=== PATIENT | female | born 1980 | race Caucasian/White ===

== ENCOUNTER → 2020-03-09 10:18 | Outpatient (BNVA) | payer OTHER, SELFPAY | PROVIDERS: PCP Internal Medicine; Referring Provider Internal Medicine; Visit Provider Physician Assistant | DX: K59.09 Other constipation (principal); Z79.899 Other long term (current) drug therapy | CPT/HCPCS: 99212 ==

== ENCOUNTER → 2020-07-06 11:21 | Outpatient (BNVA) | payer OTHER, SELFPAY | PROVIDERS: PCP Internal Medicine; Visit Provider Anesthesiology | DX: M51.36 Other intervertebral disc degeneration, lumbar region (principal); M47.816 Spondylosis without myelopathy or radiculopathy, lumbar region; M48.061 Spinal stenosis, lumbar region without neurogenic claudication; G89.4 Chronic pain syndrome | CPT/HCPCS: 99212 ==

== ENCOUNTER 2020-07-19 08:55 | Outpatient (REF) | payer OTHER, SELFPAY ==
--- NOTE | ~2020-07-19 | MR_ITS ---
MR LUMBAR SPINE WITHOUT CONTRAST CLINICAL INFORMATION: Spinal stenosis, lumbar region without neurogenic claudication. COMPARISON: Lumbar spine MRI 07/14/2019. TECHNIQUE: MRI of the lumbar spine was obtained using routine sequences without contrast. FINDINGS: There are 5 nonrib-bearing lumbar-type vertebral bodies. There is slight grade 1 anterolisthesis of L5 on S1 that is unchanged. Lumbar alignment is otherwise maintained. Modic type I endplate signal changes at L3-L4 and L5-S1. There are also Modic type II endplate signal changes at L5-S1. No additional bone marrow edema. No acute fractures. Conus terminates at the L1 level. There are no significant soft tissue findings. L1-L2: Disc contour is normal. No central canal stenosis and no foraminal stenosis. L2-L3: Small annular disc bulge and bilateral facet arthropathy. No central canal stenosis and no foraminal stenosis. L3-L4: Diffuse annular disc bulge exhibiting a dorsal annular fissure and bilateral facet arthropathy. No central canal stenosis. Mild foraminal encroachment bilaterally. L4-L5: Diffuse annular disc bulge and moderate bilateral facet arthropathy and ligamentum flavum thickening. No central canal stenosis. No foraminal stenosis. L5-S1: There is a diffuse annular disc bulge with superimposed left greater than right lateral disc osteophyte protrusions, on the left side contacting the extraforaminal left L5 nerve root. There is mild right-sided foraminal encroachment. MR/MR lumbar spine wo con IMPRESSION: - At L5-S1, a left lateral disc osteophyte protrusion similarly contacts the extraforaminal left L5 nerve root. - At L3-L4, and annular disc bulge exhibiting a dorsal annular fissure is stable. - No severe central canal stenosis and no severe foraminal stenosis within the lumbar spine.
== END 2020-07-19 08:56 | disposition home or self-care (01) ==
LOC: HO.MRI 08:55
PROVIDERS: PCP Internal Medicine; Visit Provider Anesthesiology
DX: M47.816 Spondylosis without myelopathy or radiculopathy, lumbar region (principal); M51.36 Other intervertebral disc degeneration, lumbar region; M48.061 Spinal stenosis, lumbar region without neurogenic claudication
CPT/HCPCS: 72148

== ENCOUNTER → 2020-08-03 13:07 | Outpatient (BNVA) | payer OTHER, SELFPAY | PROVIDERS: PCP Internal Medicine; Visit Provider Anesthesiology ==

== ENCOUNTER → 2020-08-10 16:28 | Outpatient (BNVA) | payer OTHER, SELFPAY | PROVIDERS: PCP Internal Medicine; Visit Provider Anesthesiology | DX: M51.36 Other intervertebral disc degeneration, lumbar region (principal); M47.816 Spondylosis without myelopathy or radiculopathy, lumbar region; M48.061 Spinal stenosis, lumbar region without neurogenic claudication; G89.4 Chronic pain syndrome; Z79.899 Other long term (current) drug therapy | CPT/HCPCS: 99212 ==

== ENCOUNTER 2020-08-11 15:22 | Outpatient (REF) | payer OTHER, SELFPAY ==
--- NOTE | ~2020-08-11 | XR_ITS ---
EXAMINATION: XR KNEE, LEFT CLINICAL INFORMATION: Left knee x-ray COMPARISON: None TECHNIQUE: Four views of the left knee. FINDINGS: Bones and soft tissues are normal. No fracture or joint effusion. Alignment is anatomic. Joint spaces are well maintained. No abnormal soft tissue calcification. XR/XR knee LT 2V IMPRESSION: Normal left knee.
== END 2020-08-11 15:23 | disposition home or self-care (01) ==
LOC: HO.XRAY 15:22
PROVIDERS: PCP Internal Medicine; Visit Provider Nurse Practitioner Family
DX: M25.562 Pain in left knee (principal)
CPT/HCPCS: 73560

== ENCOUNTER 2020-08-14 12:35 | Outpatient (REF) | payer OTHER, SELFPAY ==
[2020-08-14 13:47] LABS: MANUAL DIFF FLAG NO
[2020-08-14 14:07] LABS: Basophils Percent Auto 0.5 % (0-2); Hematocrit 42.5 % (37-47); Hemoglobin 13.8 g/dl (12.0-16.0); Imm Gran Abs Auto 0.02 X10*3/uL (0.00-0.03); Imm Gran Pct Auto 0.2 % (0.0-0.4); Lymphocytes Absolute Auto 1.9 X10*3/uL (1.2-4.9); Lymphocytes Percent Auto 22.5 % (20-40); Mean Corpuscular HGB Conc 32.5 g/dl (31.0-35.0); Mean Corpuscular Hemoglobin 31.5 pg (27.0-33.0); Mean Platelet Volume 12.4 fL (9.4-12.3); Monocytes Absolute Auto 0.7 X10*3/uL (0.1-1.2); Monocytes Percent Auto 7.7 % (2-11); Neutrophils Absolute Auto 5.8 X10*3/uL (2.0-8.3); Neutrophils Percent Auto 69.1 % (45-73); Platelet Count 218 X10*3/uL (160-400); Red Blood Count 4.38 X10*6/uL (4.20-5.50); Red Cell Distribution Width 12.8 % (11.0-16.0); White Blood Count 8.4 X10*3/uL (4.8-10.8)
[2020-08-14 14:29] LABS: Alanine Aminotransferase 13 U/L (0-31); Albumin Level 4.6 g/dL (3.5-5.0); Alkaline Phosphatase 50 U/L (39-117); Anion Gap 12 (12-20); Aspartate Amino Transferase 16 U/L (5-31); Bilirubin Total 0.7 mg/dL (0.0-1.0); Blood Urea Nitrogen 12 mg/dL (9-16); Calcium 9.5 mg/dL (8.4-10.2); Carbon Dioxide 26 mmol/L (22-29); Chloride 105 mmol/L (96-108); Cholesterol 167 mg/dL; Estimated Glomerular Filt Rate > 60; Glucose Fasting 79 mg/dL (60-99); HDL Cholesterol 52 mg/dL; LDL Cholesterol Calculated 85 mg/dl; Potassium 3.9 mmol/L (3.3-5.1); Rheumatoid Factor < 15.0 IU/mL (<15.0); Sodium 139 mmol/L (135-145); Total Protein 7.2 g/dL (6.5-8.0); Triglycerides 153 mg/dL
[2020-08-14 14:51] LABS: Erythrocyte Sedimentation Rate 3 MM/HR (0-20); Thyroid Stimulating Hormone 0.96 uIU/mL (0.32-4.0)
[2020-08-15 14:01] LABS: Anti Nuclear Antibody Screen NEGATIVE (NEGATIVE)
[2020-08-18 15:07] LABS: DNAds, Crithidia Antibody Negative (Negative)
== END 2020-08-14 12:36 | disposition home or self-care (01) ==
LOC: HO.HMGCLDS 12:35
PROVIDERS: PCP Internal Medicine; Visit Provider Nurse Practitioner Family
DX: G89.4 Chronic pain syndrome (principal); M25.562 Pain in left knee; Z20.822 Contact with and (suspected) exposure to COVID-19
CPT/HCPCS: 80053; 80061; 84443; 85025; 85652; 86038; 86039; 86255; 86431; U0003; U0005

== ENCOUNTER 2020-08-23 14:33 | Outpatient (REF) | payer OTHER, SELFPAY ==
--- NOTE | ~2020-08-23 | XR_ITS ---
EXAMINATION: XR HIP, LEFT CLINICAL INFORMATION: Pain COMPARISON: None TECHNIQUE: Two views of the left hip and one view of the pelvis. FINDINGS: Bone alignment is normal. No fracture or dislocation is seen. The hip joints are normal appearing. Bones of the pelvis are normal. Soft tissues are normal. XR/XR hip LT w PEL1V IMPRESSION: Normal left hip.
== END 2020-08-23 14:34 | disposition home or self-care (01) ==
LOC: HO.XRAY 14:33
PROVIDERS: PCP Internal Medicine; Visit Provider Physical Medicine & Rehabilitation
DX: M25.552 Pain in left hip (principal)
CPT/HCPCS: 73502

== ENCOUNTER 2020-09-12 06:30 | Outpatient (REF) | payer OTHER, SELFPAY ==
--- NOTE | ~2020-09-12 | FL_ITS ---
EXAMINATION: Intraoperative fluoroscopy CLINICAL INFORMATION: Disc degeneration COMPARISON: Lumbar spine MRI July 19, 2020 TECHNIQUE: Intraoperative fluoroscopy was provided for use by Judy Alexis NP. A total of 2 images were saved to PACS. A radiologist was not present during imaging. Today's dictation is only for administrative purposes to document intraoperative fluoroscopic usage. TOTAL FLUOROSCOPIC TIME: 0.5 minutes FL/FL guidance in treatment room FINDINGS~\^^ Intraoperative fluoroscopy provided for use by Judy Alexis NP. Please see operative note for detailed findings.
== END 2020-09-12 06:31 | disposition home or self-care (01) ==
LOC: HO.RADIR 06:30
PROVIDERS: Visit Provider Anesthesiology
DX: M51.36 Other intervertebral disc degeneration, lumbar region (principal)
CPT/HCPCS: 64483; 64484; J3300; Q9967

== ENCOUNTER → 2020-09-18 11:41 | Outpatient (BNVA) | payer OTHER, SELFPAY | PROVIDERS: PCP Internal Medicine; Visit Provider Anesthesiology ==

== ENCOUNTER → 2020-09-27 09:40 | Outpatient (BNVA) | payer OTHER, SELFPAY | PROVIDERS: PCP Internal Medicine; Visit Provider Anesthesiology | DX: M51.36 Other intervertebral disc degeneration, lumbar region (principal); M47.816 Spondylosis without myelopathy or radiculopathy, lumbar region; M48.061 Spinal stenosis, lumbar region without neurogenic claudication; M46.1 Sacroiliitis, not elsewhere classified; G89.4 Chronic pain syndrome | CPT/HCPCS: 99212 ==

== ENCOUNTER 2021-08-31 15:00 | Outpatient (RCR) | payer OTHER, SELFPAY ==
--- NOTE | 2021-08-31 16:03 | MHC.OT.DC ---
[address] [phone] F: [phone] Occupational Therapy Discharge Note Provider: Sussy Cleary MD Diagnosis: Pain in right hand Date of Surgery: Date of Evaluation: 08/21/21 Date of Discharge: 08/31/21 Treatments to Date: 2 Cancellations to Date: No Shows to Date: Discharge Status: Patient Elected to Stop Discharge Summary: Pt was unable to impliment a trial with a night wrist orthosis and ther ex due to forgetting proper tech.... S+S present like possible Raynauds ..pt reports her mother has the same sx. Strength , ROM...dexterity WNL Pt will not be available for OT as of next week due to foot surgery, planning a long recovery Electronically Signed By: Roshni Yun OT CHT Reviewed/agree with student documentation: N/A Therapist: Please Sign and return to therapist, thank you for your referral.
== END 2021-08-31 16:03 | disposition home or self-care (01) ==
LOC: HO.OT 15:00
PROVIDERS: Visit Provider Internal Medicine
DX: M79.641 Pain in right hand (principal)
CPT/HCPCS: 29125; 97110; 97166

== ENCOUNTER → 2021-11-07 08:02 | Outpatient (BNVA) | payer OTHER, SELFPAY | PROVIDERS: PCP Internal Medicine; Visit Provider Physician Assistant | DX: K59.01 Slow transit constipation (principal) | CPT/HCPCS: 99202 ==

== ENCOUNTER 2022-01-15 12:01 | Outpatient (REF) | payer OTHER, SELFPAY ==
[2022-01-16 04:17] LABS: HBS Num1 22.07 mIU/mL (0-7.99); HBc Num1 0.09 S/CO (0.00-0.79); HBsAGNum1 0.22 S/CO (0.00-0.99); Hepatitis B Core Antibody Nonreactive (Nonreactive); Hepatitis B Surface Antigen Negative (Negative); ~Hepatitis B Surface Antibody REACTIVE (Nonreactive)
[2022-01-16 21:12] LABS: Rubeola IgG (Measles) >300.00 AU/mL
[2022-01-18 16:21] LABS: TS Negative Control Passed; TS Panel A 0; TS Panel B 0; TS Positive Control Passed; TSpotTB Negative (Negative)
== END 2022-01-15 12:02 | disposition home or self-care (01) ==
LOC: HO.LAB 12:01
PROVIDERS: PCP Internal Medicine; Visit Provider Internal Medicine
DX: Z01.84 Encounter for antibody response examination (principal); Z11.1 Encounter for screening for respiratory tuberculosis
CPT/HCPCS: 36415; 86481; 86704; 86706; 86735; 86762; 86765; 86787; 87340

== ENCOUNTER 2022-01-23 11:19 | Outpatient (REF) | payer OTHER, SELFPAY ==
[2022-01-23 12:49] LABS: Influenza A PCR NEGATIVE (Negative); Influenza B PCR NEGATIVE (Negative); Resp Syncy Virus RNA Qual PCR NEGATIVE (Negative); SARS COV2 PCR INHOUSE NEGATIVE (Negative)
== END 2022-01-23 11:20 | disposition home or self-care (01) ==
LOC: HO.LNP 11:19
PROVIDERS: Visit Provider Emergency Medicine
DX: Z20.822 Contact with and (suspected) exposure to COVID-19 (principal); R68.89 Other general symptoms and signs
CPT/HCPCS: 0241U

== ENCOUNTER → 2022-03-07 13:03 | Outpatient (BNVA) | payer OTHER, SELFPAY | PROVIDERS: PCP Internal Medicine; Visit Provider Physician Assistant | DX: K59.01 Slow transit constipation (principal); R19.8 Other specified symptoms and signs involving the digestive system and abdomen; K58.0 Irritable bowel syndrome with diarrhea; K52.9 Noninfective gastroenteritis and colitis, unspecified; R53.83 Other fatigue; F41.9 Anxiety disorder, unspecified | CPT/HCPCS: 99212 ==

== ENCOUNTER 2022-03-11 10:26 | Outpatient (REF) | payer OTHER, SELFPAY ==
[2022-03-11 10:36] LABS: MANUAL DIFF FLAG NO
[2022-03-11 11:43] LABS: Basophils Percent Auto 0.5 % (0-2); Eosinophils Absolute Auto 0.1 X10*3/uL (0.0-0.4); Eosinophils Percent Auto 2.1 % (0-4); Hematocrit 39.2 % (37.0-47.0); Hemoglobin 12.7 g/dl (12.0-16.0); Imm Gran Abs Auto 0.02 X10*3/uL (0.00-0.03); Imm Gran Pct Auto 0.3 % (0.0-0.4); Lymphocytes Absolute Auto 1.8 X10*3/uL (1.2-4.9); Lymphocytes Percent Auto 27.3 % (20-40); Mean Corpuscular HGB Conc 32.4 g/dl (31.0-35.0); Mean Corpuscular Hemoglobin 31.1 pg (27.0-33.0); Mean Corpuscular Volume 96.1 fL (80.0-98.0); Mean Platelet Volume 12.4 fL (9.4-12.3); Monocytes Absolute Auto 0.5 X10*3/uL (0.1-1.2); Monocytes Percent Auto 8.1 % (2-11); Neutrophils Percent Auto 61.7 % (45-73); Platelet Count 199 X10*3/uL (160-400); Red Blood Count 4.08 X10*6/uL (4.20-5.50); Red Cell Distribution Width 12.9 % (11.0-16.0); White Blood Count 6.6 X10*3/uL (4.8-10.8)
[2022-03-11 12:27] LABS: Erythrocyte Sedimentation Rate 7 MM/HR (0-20)
[2022-03-11 12:49] LABS: Alanine Aminotransferase 11 U/L (0-31); Albumin Level 4.4 g/dL (3.5-5.0); Alkaline Phosphatase 49 U/L (39-117); Anion Gap 14 (12-20); Aspartate Amino Transferase 19 U/L (5-31); Bilirubin Total 0.3 mg/dL (0.0-1.0); Blood Urea Nitrogen 14 mg/dL (9-16); C Reactive Protein 0.02 mg/dL (< or = 0.50); Calcium 9.2 mg/dL (8.4-10.2); Carbon Dioxide 25 mmol/L (22-29); Chloride 104 mmol/L (96-108); Estimated Glomerular Filt Rate > 60; Glucose Random 73 mg/dL (60-115); Potassium 4.1 mmol/L (3.3-5.1); Sodium 139 mmol/L (135-145); Total Protein 6.9 g/dL (6.5-8.0)
[2022-03-11 13:23] LABS: Thyroid Stimulating Hormone 0.51 uIU/mL (0.32-4.0)
[2022-03-12 20:41] LABS: Transglutaminase IgA <1.0 U/mL
[2022-03-15 14:21] LABS: Endomysial IgA Antibody Negative (Negative)
[2022-03-15 16:26] LABS: Vitamin D 25-OH, D2 <4 ng/mL; Vitamin D 25-OH, D3 48 ng/mL; Vitamin D 25-OH, Total 48 ng/mL (30-100)
== END 2022-03-11 10:27 | disposition home or self-care (01) ==
LOC: HO.LAB 10:26
PROVIDERS: PCP Internal Medicine; Visit Provider Physician Assistant
DX: K52.9 Noninfective gastroenteritis and colitis, unspecified (principal); R19.8 Other specified symptoms and signs involving the digestive system and abdomen
CPT/HCPCS: 36415; 80053; 82306; 84443; 85025; 85652; 86140; 86231; 86364

== ENCOUNTER 2022-06-10 08:39 | Outpatient (REF) | payer OTHER, SELFPAY ==
[2022-06-10 09:09] LABS: MANUAL DIFF FLAG NO
[2022-06-10 09:51] LABS: Basophils Absolute Auto 0.1 X10*3/uL (0.0-0.2); Basophils Percent Auto 0.5 % (0-2); Hematocrit 41.7 % (37.0-47.0); Hemoglobin 13.5 g/dl (12.0-16.0); Imm Gran Abs Auto 0.08 X10*3/uL (0.00-0.03); Imm Gran Pct Auto 0.8 % (0.0-0.4); Lymphocytes Percent Auto 19.6 % (20-40); Mean Corpuscular HGB Conc 32.4 g/dl (31.0-35.0); Mean Corpuscular Volume 95.6 fL (80.0-98.0); Mean Platelet Volume 11.9 fL (9.4-12.3); Monocytes Absolute Auto 0.8 X10*3/uL (0.1-1.2); Monocytes Percent Auto 7.7 % (2-11); Neutrophils Absolute Auto 7.4 x10*3/uL (2.0-8.3); Neutrophils Percent Auto 71.4 % (45-73); Platelet Count 230 X10*3/uL (160-400); Red Blood Count 4.36 X10*6/uL (4.20-5.50); Red Cell Distribution Width 12.2 % (11.0-16.0); White Blood Count 10.4 X10*3/uL (4.8-10.8)
== END 2022-06-10 08:40 | disposition home or self-care (01) ==
LOC: HO.LAB 08:39
PROVIDERS: PCP Internal Medicine; Visit Provider Internal Medicine
DX: Z77.120 Contact with and (suspected) exposure to mold (toxic) (principal)
CPT/HCPCS: 36415; 85025; 86003

== ENCOUNTER 2022-06-10 12:52 | Outpatient (REF) | payer OTHER, SELFPAY ==
--- NOTE | ~2022-06-10 | XR_ITS ---
EXAMINATION: XR CHEST CLINICAL INFORMATION: Cough. COMPARISON: Chest x-ray 01/27/2020 TECHNIQUE: 2 views of the chest were obtained. FINDINGS: There is a neural stimulator probe within the mid thoracic spinal canal. No acute abnormality the chest. Lungs are normally aerated. No pleural effusion and no pneumothorax. Heart size is normal. The cardiac and mediastinal contours are normal. XR/XR chest 2V IMPRESSION: Normal chest.
== END 2022-06-10 12:53 | disposition home or self-care (01) ==
LOC: HO.HMGCX 12:52
PROVIDERS: PCP Internal Medicine; Visit Provider Nurse Practitioner Family
DX: R05.9 Cough, unspecified (principal)
CPT/HCPCS: 71046

== ENCOUNTER 2022-12-02 11:35 | Outpatient (REF) | payer OTHER, SELFPAY ==
[2022-12-02 11:52] LABS: MANUAL DIFF FLAG NO
[2022-12-02 12:47] LABS: Basophils Absolute Auto 0.1 X10*3/uL (0.0-0.2); Basophils Percent Auto 0.6 % (0-2); Hematocrit 41.9 % (37.0-47.0); Imm Gran Abs Auto 0.03 X10*3/uL (0.00-0.03); Imm Gran Pct Auto 0.3 % (0.0-0.4); Lymphocytes Absolute Auto 1.8 X10*3/uL (1.2-4.9); Lymphocytes Percent Auto 20.9 % (20-40); Mean Corpuscular Hemoglobin 30.8 pg (27.0-33.0); Mean Corpuscular Volume 99.3 fL (80.0-98.0); Mean Platelet Volume 12.1 fL (9.4-12.3); Monocytes Absolute Auto 0.6 X10*3/uL (0.1-1.2); Monocytes Percent Auto 6.9 % (2-11); Neutrophils Absolute Auto 6.1 x10*3/uL (2.0-8.3); Neutrophils Percent Auto 71.3 % (45-73); Platelet Count 219 X10*3/uL (160-400); Red Blood Count 4.22 X10*6/uL (4.20-5.50); Red Cell Distribution Width 12.2 % (11.0-16.0); White Blood Count 8.6 X10*3/uL (4.8-10.8)
== END 2022-12-02 11:36 | disposition home or self-care (01) ==
LOC: HO.LAB 11:35
PROVIDERS: PCP Internal Medicine; Visit Provider Internal Medicine
DX: R23.3 Spontaneous ecchymoses (principal)
CPT/HCPCS: 36415; 85025

== ENCOUNTER 2022-12-31 13:30 | Outpatient (REF) | payer OTHER, SELFPAY ==
--- NOTE | ~2022-12-31 | MR_ITS ---
EXAMINATION: MR LUMBAR SPINE WITHOUT CONTRAST CLINICAL INFORMATION: Sacroiliitis, not elsewhere classified. COMPARISON: Lumbar spine MRI 07/19/2020. TECHNIQUE: MRI of the lumbar spine was obtained using routine sequences without contrast. FINDINGS: The lumbar vertebral bodies maintain normal heights and alignment. There is severe disc height loss at L3-L4 and L5-S1. Edematous simply changes are seen at the L5-S1 level. The distal spinal cord appears normal. The conus medullaris terminates normally at L1. The visualized paraspinal muscles and intra-abdominal and pelvic contents are within normal limits. SPINAL LEVELS: L1-L2: No posterior disc abnormality. No spinal canal or neural foraminal stenosis. L2-L3: No posterior disc abnormality. Mild facet arthropathy. No spinal canal or neural foraminal stenosis. L3-L4: Mild disc bulging. Mild to moderate facet arthropathy. Minimal narrowing of the neural foramina. No spinal canal stenosis. No interval change. L4-L5: Mild disc bulging with moderate facet arthropathy. No spinal canal or neural foraminal stenosis. L5-S1: Disc bulging with moderate facet arthropathy. No spinal canal stenosis. Mild bilateral neural foraminal stenosis without change. MR/MR lumbar spine wo con IMPRESSION: Mild multilevel degenerative spondylosis without significant progression compared with 07/19/2020. Severe disc height loss seen at L3-L4 and L5-S1. No significant narrowing of the spinal canal. No definite nerve root compression is seen.
== END 2022-12-31 13:31 | disposition home or self-care (01) ==
LOC: HO.MRI 13:30
PROVIDERS: PCP Internal Medicine; Visit Provider Internal Medicine
DX: M46.1 Sacroiliitis, not elsewhere classified (principal); M47.816 Spondylosis without myelopathy or radiculopathy, lumbar region
CPT/HCPCS: 72148

== ENCOUNTER 2023-02-12 10:50 | Outpatient (AMB) | payer OTHER, SELFPAY ==
--- NOTE | 2023-02-12 11:21 | HO.SPINEOV ---
Intake Intake Visit Reasons: second opinion/spinal cord Intake Note: Ms. Li is here today for a 2nd opinion Re: low back pain. MRI done @ [facility] [place]. [employer] Required: No Allergies latex [LATEX] Allergy (Intermediate, Verified 11/13/22 13:08) HIVES/RASH Assessment & Plan Assessment & Plan (1) Lumbar radiculopathy: Code(s): M54.16 - Radiculopathy, lumbar region Plan Ms. Li is a 42-year-old female who is self-referred to our service for 2nd opinion. She comes in today with a chief complaint of sciatic/radicular type pain originating in her low back and radiating down her anterior/medial thigh. She states this pain has been chronic for the last several years and was recently addressed with the spinal cord stimulator and last year. She reports the spinal cord stimulator completely relieved her pain in provide her with exceptional relief. Of note she is followed by pain management who was also done many injections with her. She reports that the inciting incident for return of symptoms after spinal cord stimulator implantation was in April of last year when she began a new job that requires her to sit for prolonged periods of time. She feels that she woke up 1 day and had new onset of the same radicular type pain described previously. She reports that she utilizes lidocaine patches every day an [id number] pain reliever with very minimal relief. PMH: Bipolar disorder, spinal cord stimulator implantation last year. Social hx: Patient smokes 8 cigarettes per day per report. No current substance use, Hx SUDs. Medications: Lamictal, Topamax, lithium, Seroquel, Klonopin. Allergies: Latex. Physical exam: Mobility / function: Patient ambulates well, can rise from a seated position without difficulty. Sensation: Grossly intact CN: II-XII grossly intact. Strength Testing Upper Extremities: - Deltoid 5/5 right 5/5 left - Biceps 5/5 right 5/5 left - Triceps 5/5 right 5/5 left - Wrist Ext 5/5 right 5/5 left - Wrist Flex 5/5 right 5/5 left - Hand asparagus cutter 5/5 right 5/5 left - Interossei 5/5 right 5/5 left Strength Testing Lower Extremities: - Hip flexion 5/5 right 5/5 left - Knee extension 5/5 right 5/5 left - Dorsiflexion 5/5 right 5/5 left - Plantar flex 5/5 right 5/5 left - EHL 5/5 right 5/5 left Reflexes: - Biceps Right - 2+ Left - 2+ - Triceps Right - 2+ Left - 2+ - Patellar Right - 2+ Left - 2+ - Achilles Right - 2+ Left - 2+ - Plantar Right - 2+ Left - 2+ (-) Babinski (-) Ospina?s sign (-) Clonus Imaging review: MRI from 2020 and [address] Ferrer. The patient has stable degenerative disc disease at L3-4 and L5-S1 without stenosis or nerve compression. MRI from 2020 appears very similar with no significant/notable changes compared to this MRI from 2022. Impression: Linda is a 42-year-old female comes in today for 2nd opinion after reportedly having acute onset sciatic/radicular type pain began in April of last year. 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 She is followed by pain management had a spinal cord stimulator implanted 1 year ago, which provided her with significant relief of symptoms. Unfortunately is unknown at this time why her symptoms would spontaneously resumed with no changes in her MRI. She was informed that from a neurosurgical standpoint there is no obvious indication for surgery and no compression of nerves that would be causing her symptoms. She is encouraged to continue following up with Pain Management, and to consider seeing a neurologist which she states she already has in the works. The total time spent with this visit with this patient was 45 minutes reviewing history, physical exam, MRI lumbar spine imaging review, and implementation of treatment plan or further diagnostic testing. Marcial Ferrer MD,PhD [facility] Coding Level of Care Code New Pt Level 4 (94286) Diagnoses Lumbar radiculopathy M54.16
== END 2023-02-12 12:16 | disposition home or self-care (01) ==
PROVIDERS: PCP Internal Medicine; Visit Provider Neurological Surgery
DX: M54.16 Radiculopathy, lumbar region (principal)
CPT/HCPCS: 99204

== ENCOUNTER → 2023-02-12 10:50 | Outpatient (BNVA) | payer OTHER, SELFPAY | PROVIDERS: PCP Internal Medicine; Visit Provider Neurological Surgery ==

== ENCOUNTER 2023-03-13 14:22 | Outpatient (AMB) | payer OTHER, SELFPAY ==
[2023-03-13 14:33] VITALS: BP 100/62; PULSE 122; TEMP 37.5; O2SAT 100; BMI 21.4
--- NOTE | 2023-03-13 14:33 | MHC.OFFWIV ---
Intake Vital Signs 03/13/23 14:33 Height 5 ft 3 in Weight 121 lb BMI 21.4 BP 100/62 Blood Pressure Location Rt brachial Position Sitting Pulse 122 H Pulse Source Pulse Oximeter Temp 99.5 F Temp Source Temporal Artery Scan Pulse Oximetry (%) 100 Oxygen Delivery Method Room Air Intake Visit Reasons: EP Throat/Sinus/Back pain due to fall Intake Note: pt is here today for throat,sinus, dry cough which started today. Pt states she also fell this morning in her shower and hit her back which is now painful as well. Patient Tobacco Use Status: Current everyday Tobacco user Allergies latex [LATEX] Allergy (Intermediate, Verified 03/13/23 14:44) HIVES/RASH Do you need a note to return to daycare/school/sports/work: Yes HPI HPI Comments History of Present Illness Details 42-year-old female that presents for offered room full of back pain. Patient had a cough for throat and chills x1 day. This morning minus hours she slipped and fell striking her back. She is complaining of midback pain. [facility] Medical History Bunion, left foot Bilateral hand pain Constipation by delayed colonic transit Sacroiliitis Spondylosis of lumbar spine Left knee pain Chronic pain syndrome Spinal stenosis at L4-L5 level Facet arthritis of lumbar region Disc degeneration, lumbar Candidal stomatitis Chronic constipation Thrush Surgical History Spinal cord stimulator status No pertinent past surgical history Family History Father Essential hypertension Pure hypercholesterolemia Mother Congestive heart failure Social History Household Members Other:: daughter Housing: Apartment Alcohol intake: never Patient Tobacco Use Status: Current everyday Tobacco user Tobacco use type: Cigarette Cigarettes Per Day: 4 e-Cigarette/Vaping Use: Currently Using Second Hand Smoke Exposure: No service: No Current occupational status: employed Current occupational exposures/hazards: No Cognitive needs: No Hearing needs: No Vision needs: No Review of Systems ENT Reports sore throat Resp Reports cough Musc Reports back pain Physical Exam Vital Signs: Last Vital Signs Temp 99.5 F 03/13/23 14:33 Pulse 122 H 03/13/23 14:33 BP 100/62 03/13/23 14:33 Pulse Ox 100 03/13/23 14:33 Oxygen Delivery Method Room Air 03/13/23 14:33 BMI result Body Mass Index 21.4 Const General: cooperative, healthy appearing, no acute distress and alert Orientation/consciousness: patient oriented x3 Limitations: no limitations HEENT Other: No trismus, muffled voice, uvula deviation. Mild erythema in the posterior pharynx Ears: hearing grossly normal bilaterally General nose exam: Normal external nose present Resp Effort & Inspection: normal respiratory effort and able to speak in complete sentences Cardio Rate: regular rate Skin General skin exam: no rashes or lesions noted Neuro General: patient oriented x3 Extrem General: Yes normal to inspection Results AMB Rapid Strep AMB Rapid Strep Negative Last Edit by Giulia Hyatt MA on 03/13/23 14:55 Results Reviewed Results Reviewed: Laboratory Last Values Strep Scn Rapid Clinic Negative 03/13/23 14:54 Assessment & Plan Assessment & Plan (1) Pharyngitis: Code(s): J02.9 - Acute pharyngitis, unspecified Qualifiers: Pharyngitis/tonsillitis etiology: unspecified etiology Qualified Code(s): J02.9 - Acute pharyngitis, unspecified Plan Cm large unremarkable mild erythema in posterior pharynx. Rapid strep negative will treat symptomatically from viral pharyngitis also prescribed anti-inflammatories for back pain Discharge instructions, follow up and treatment are discussed with patient in my usual fashion. Alternatives in treatment are also discussed. The patient will return for worsening symptoms or as needed. Advised that any labs/imaging ordered will be followed up on and contact made if further treatment needed. Counseled that patient's condition may require further evaluation and/or treatment. Symptoms of concern for worsening disorder discussed in detail in my customary manner. Patient does verbalize understanding of the plan, there are no apparent barriers to communication. The patient is given the opportunity to ask questions and have them answered to his/her satisfaction Orders: Orders AMB Rapid Strep Screen Today Z13.9 - Encounter for screening, unspecified Medications: New dexamethasone 10 mg (5 x 2 mg) PO DAILY 1 day 5 tabs 0RF meloxicam 7.5 mg PO DAILY 14 tabs 0RF lidocaine 5% leave on most painful area for up to 12 hrs 1 patch topical DAILY 15 ea 0RF cyclobenzaprine 5 mg PO BEDTIME 10 tabs 0RF Coding Level of Care Code Est Pt Level 3 (59705) Diagnoses Pharyngitis, unspecified etiology J02.9 Pharyngitis/tonsillitis etiology: unspecified etiology
== END 2023-03-13 15:06 | disposition home or self-care (01) ==
PROVIDERS: PCP Internal Medicine; Visit Provider Physician Assistant
DX: J02.9 Acute pharyngitis, unspecified (principal)
CPT/HCPCS: 87880; 99213

== ENCOUNTER 2023-05-20 13:53 | Outpatient (AMB) | payer OTHER, SELFPAY ==
[2023-05-20 14:04] VITALS: BP 118/68; PULSE 81; O2SAT 100; BMI 21.6
--- NOTE | 2023-05-20 14:04 | MHC.OFFVIS ---
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 Operator Required: No Composing Machine Operator/Tender: Composing Machine Operator/Tender offered & declined Accompanied by: Self / Same As Patient Allergies latex [LATEX] Allergy (Intermediate, Verified 05/20/23 14:10) HIVES/RASH Medication List - Last Reconciled 05/20/23 by Jazmní Rosario LPN clonazepam (Klonopin) 1.5 mg PO BEDTIME lamotrigine 200 mg PO DAILY lithium carbonate 900 mg PO BEDTIME methylcellulose (laxative) (Citrucel) 500 mg PO TID quetiapine 150 mg PO BEDTIME topiramate 75 mg PO DAILY HPI Pulmonary Fibrosis HPI Details Salome is a pleasant 42 year old current minimal smoker, with a 20 pack year history with underlying bipolar disorder managed on lamotrigine and lamictal. She was referred by PCP for pulmonary evaluation after cervical CT findings in September were suggestive of pulmonary fibrosis. At this time she denies any symptoms. She is quite active engaging in cardio three times per week with no cough or dyspnea. She reports since childhood she would have prolonged symptoms after viral infections but denies any diagnosis of asthma or other respiratory conditions. She reports mother with asthma otherwise no other pertinent family history. She denies any seasonal allergies. She denies any occupational exposures, works for [employer]. She admits to prior IVDU (quit 2020), however denied inhaling any substances. Tspot from 12/2021 negative. [facility] Medical History Bunion, left foot Bilateral hand pain Constipation by delayed colonic transit Sacroiliitis Spondylosis of lumbar spine Left knee pain Chronic pain syndrome Spinal stenosis at L4-L5 level Facet arthritis of lumbar region Disc degeneration, lumbar Candidal stomatitis Chronic constipation Thrush Surgical History Spinal cord stimulator status No pertinent past surgical history Family History Father Essential hypertension Pure hypercholesterolemia Mother Congestive heart failure Social History (Updated 05/20/23 @ 14:16 by Jazmín Rosario LPN) Household Members Other:: daughter Housing: Apartment Alcohol intake: never Patient Tobacco Use Status: Current everyday Tobacco user Tobacco use type: Cigarette Cigarettes Per Day: 2 e-Cigarette/Vaping Use: Currently Using Second Hand Smoke Exposure: No service: No Current occupational status: employed Current occupational exposures/hazards: No Cognitive needs: No Hearing needs: No Vision needs: No Review of Systems Const Denies chills, Denies excessive sweating, Denies fever(s), Denies headache(s) and Denies night sweats Eyes Denies dry eyes, Denies irritation and Denies itchy eyes ENT Reports Normal hearing present and Denies headache(s) Card Denies chest pain, Denies chest pain at rest, Denies chest pain with activity, Denies claudication, Denies leg edema, Denies dyspnea, Denies dyspnea on exertion, Denies orthopnea and Denies paroxysmal nocturnal dyspnea Resp Denies chest congestion, Denies cough, Denies excessive phlegm production, Denies pain on inspiration, Denies pain with cough, Denies dyspnea, Denies dyspnea on exertion, Denies stridor and Denies wheezing Musc Denies myalgias Neuro Reports Normal hearing present and Denies headache(s) Endo Denies excessive sweating Ryan/Lymph Denies lymphadenopathy Aller/Immun Denies itchy eyes, Denies seasonal rhinorrhea and Denies wheezing Physical Exam Vital Signs: Last Vital Signs Pulse 81 05/20/23 14:04 BP 118/68 05/20/23 14:04 Pulse Ox 100 05/20/23 14:04 Oxygen Delivery Method Room Air 05/20/23 14:04 BMI result Body Mass Index 21.6 Const General: cooperative, healthy appearing, comfortable, no acute distress, well developed and alert Orientation/consciousness: patient oriented x3 Limitations: no limitations HEENT Head: Yes normal to inspection, Yes normocephalic and Yes atraumatic Ears: hearing grossly normal bilaterally and external ears normal Eyes General: appearance normal, both eyes and all related structures Eyelids: Yes eyelids normal Sclerae: sclerae normal EOM: EOMs intact bilaterally Neck Neck: Yes normal visual inspection and Yes no lymphadenopathy Lymphatic: no lymphadenopathy noted Chest Chest palpation & inspection: normal inspection of the chest Resp Effort & Inspection: normal respiratory effort, able to speak in complete sentences, no audible wheezes, no cough, no stridor, not tachypneic, no tripod positioning and no use of accessory muscles Auscultation: clear to auscultation bilaterally Cardio Jugular venous distension: no JVD Rate: regular rate Rhythm: regular rhythm Skin Other: warm, dry General skin exam: no rashes or lesions noted Neuro General: patient oriented x3 Cranial nerves: Yes Normal hearing present Cognition (Neuro): normal cognition Gait exam (Neuro): Normal gait present Extrem General: Yes normal to inspection, Yes capillary refill normal, Yes no clubbing, cyanosis or edema and Yes no pedal edema Psych Appearance: grossly normal and well kempt Speech and movement: Normal speech and movement present and Clear speech present Affect: normal affect Attitude: cooperative Thought process: Normal thought process present Thought content: Normal thought content present Insight: Good insight present (Psych) Judgement: Good judgement present (Psych) Results Reviewed Results Reviewed: EXAMINATION: CT CERVICAL SPINE WITHOUT CONTRAST CLINICAL INFORMATION: 42-year-old with the spondylosis without myelopathy or radiculopathy, cervical region. COMPARISON: None available. TECHNIQUE: Volumetric MDCT of the cervical spine using 40 x 1.0 mm collimation was done from the skull base to the lung apices reconstructed at 3 mm axial slice thickness for review with additional multiplanar 2D reformatted reconstructions. The following dose reduction technique was used: Dose was minimized by utilizing adaptive iterative reconstruction. DLP: 143.30 mGy-cm. FINDINGS: The cervical spine is anatomically aligned. The craniocervical junction and C1-C2 articulations are intact and aligned. Vertebral body heights are well maintained. No acute fractures are identified. Posterior elements appear intact. C2-C3: Minimal central disc protrusion noted without canal stenosis or cord impingement. No significant DJD or neural foraminal stenosis. C3-C4: No disc herniation or canal stenosis. No significant DJD or neural foraminal stenosis. C4-C5: Broad-based central disc protrusion and disc osteophyte complex with flattening of the ventral dural sac possibly resulting in mild ventral cord deformity/impingement. There is moderate central spinal canal stenosis related to this. There is uncovertebral spurring noted bilaterally with mild facet hypertrophic changes bilaterally and minor foraminal narrowing noted bilaterally. C5-C6: Small central to right paramedian disc protrusion and posterior endplate spurring consistent with disc osteophyte complex, with flattening of the ventral dural sac centrally and asymmetric to the right, possibly impinging upon the right side of the spinal cord with mild spinal canal stenosis. There is uncinate process spurring bilaterally and mild facet of atrophic changes without significant neural foraminal stenosis. C6-C7: Very small [id number] central disc protrusion. No significant canal stenosis or cord impingement. No significant DJD or neural foraminal stenosis. C7-T1: Soft tissues within the canal at this level are partially obscured by artifact from the shoulders. No bony canal stenosis. There is [id number] facet arthropathy, left more than right without significant neural foraminal stenosis. T1-T2: Obscuration of the soft tissues within the canal at this level due to artifact from the shoulders. No bony canal or neural foraminal stenosis. The visualized lung apices demonstrate probable pleuroparenchymal fibrotic changes bilaterally. The visualized extraspinal soft tissues appear grossly unremarkable within the limitations of the exam. IMPRESSION: 1. Multilevel disc protrusions and disc osteophyte complexes, as described above, with moderate spinal canal stenosis at C4-C5 and mild spinal canal stenosis at C5-C6. Suggestion of ventral cord impingement at these levels as detailed above. 2. Multilevel uncinate process spurring and facet arthropathy as described above without significant neural foraminal stenosis. 3. No acute bony abnormalities. 4. Limited assessment of the soft tissues within the canal at the C7-T1 and T1-T2 levels due to artifact from the shoulders. 5. Probable pleuroparenchymal fibrotic changes at the lung apices bilaterally. Recommend followup CT of the chest in 6 months to reassess. Electronically reviewed and signed by: Taran Quiñones by Taran Quiñones M.D. Assessment & Plan Assessment & Plan (1) Pulmonary fibrosis: Code(s): J84.10 - Pulmonary fibrosis, unspecified Plan Salome presents after findings from cervical spine CT revealed pleuroparenchymal fibrotic changes at the lung apices bilaterally. Will send for dedicated chest CT. Although she currently denies any respiratory symptoms will send for PFT to evaluate for any restrictive defect. All questions were answered and patient is in agreement of plan. Will follow up to review results or sooner if needed. Orders: Orders PFT pulmonary function test Today J84.10 - Pulmonary fibrosis, unspecified CT chest wo IV con Today J84.10 - Pulmonary fibrosis, unspecified Coding Level of Care Code New Pt Level 4 (49232) Diagnoses Pulmonary fibrosis J84.10
== END 2023-05-20 14:41 | disposition home or self-care (01) ==
PROVIDERS: PCP Internal Medicine; Visit Provider Nurse Practitioner Family
DX: J84.10 Pulmonary fibrosis, unspecified (principal)
CPT/HCPCS: 99204

== ENCOUNTER → 2023-05-20 13:53 | Outpatient (BNVA) | payer OTHER, SELFPAY | PROVIDERS: PCP Internal Medicine; Visit Provider Nurse Practitioner Family | DX: J84.10 Pulmonary fibrosis, unspecified (principal) | CPT/HCPCS: 99202 ==

== ENCOUNTER 2023-06-09 07:19 | Outpatient (REF) | payer OTHER, SELFPAY | END 2023-06-09 07:20 | disposition home or self-care (01) | LOC: HO.CT 07:19 | PROVIDERS: PCP Internal Medicine; Visit Provider Nurse Practitioner Family | DX: Z13.89 Encounter for screening for other disorder (principal) ==

== ENCOUNTER 2023-06-14 13:00 | Outpatient (REF) | payer OTHER, SELFPAY ==
--- NOTE | 2023-06-14 14:53 | PFT_ITS ---
Flows: FEV1: 98 % of predicted at 2.83 L FVC: 96 % of predicted at 3.38 L FEV1/FVC: 84 % Bronchodilator response: Patient declined bronchodilator secondary to being . Volumes: Total lung capacity: 91 % of predicted at 4.59 L Residual volume: 95 % of predicted at 1.21 L Slow vital capacity: 89 % of predicted at 3.38 L Expiratory reserve volume: 98 % of predicted at 1.14 L Diffusion capacity: Normal Impression: No obstructive or restrictive ventilatory defect. Patient declined bronchodilator testing. Normal pulmonary function test otherwise. MTDD
== END 2023-06-14 13:01 | disposition home or self-care (01) ==
LOC: HO.RESP 13:00
PROVIDERS: PCP Internal Medicine; Visit Provider Nurse Practitioner Family
DX: Z13.89 Encounter for screening for other disorder (principal)

== ENCOUNTER → 2023-06-14 14:53 | Outpatient (BNV) | payer OTHER, SELFPAY | PROVIDERS: PCP Internal Medicine; Visit Provider Internal Medicine Pulmonary Disease | DX: J84.10 Pulmonary fibrosis, unspecified (principal) | CPT/HCPCS: 94060; 94727; 94729 ==

== ENCOUNTER → 2023-07-18 13:17 | Outpatient (AMB) | payer OTHER, SELFPAY ==
--- NOTE | 2023-07-18 13:26 | A.OFFVIS_ITS ---
Intake Intake Visit Reasons: Pulmonary Fibrosis : results for ct and pft Allergies latex [LATEX] Allergy (Intermediate, Verified 05/20/23 14:10) HIVES/RASH HPI Pulmonary Fibrosis : results for ct and pft 2 HPI0 Details Salome is a pleasant 42 year old current minimal smoker, with a 20 pack year history with underlying bipolar disorder managed on lamotrigine and lamictal. She was referred by PCP for pulmonary evaluation after cervical CT findings in September were suggestive of pulmonary fibrosis. At the last visit, she was sent for PFT and chest CT to evaluate for any progression of fibrosis. During this time she found out she was so will hold off on chest CT until after delivery. Today's visit was performed via telephone to review results of PFT. At this time she denies any respiratory symptoms. She also notes that she recently tested positive to COVID however did not have any respiratory symptoms. [facility] Medical History Bunion, left foot Bilateral hand pain Constipation by delayed colonic transit Sacroiliitis Spondylosis of lumbar spine Left knee pain Chronic pain syndrome Spinal stenosis at L4-L5 level Facet arthritis of lumbar region Disc degeneration, lumbar Candidal stomatitis Chronic constipation Thrush Surgical History Spinal cord stimulator status No pertinent past surgical history Family History Father Essential hypertension Pure hypercholesterolemia Mother Congestive heart failure Social History (Updated 05/20/23 @ 14:16 by Jazmín Rosario LPN) Household Members Other:: daughter Housing: Apartment Alcohol intake: never Patient Tobacco Use Status: Current everyday Tobacco user Tobacco use type: Cigarette Cigarettes Per Day: 2 e-Cigarette/Vaping Use: Currently Using Second Hand Smoke Exposure: No service: No Current occupational status: employed Current occupational exposures/hazards: No Cognitive needs: No Hearing needs: No Vision needs: No Review of Systems Const Denies chills, Denies excessive sweating, Denies fever(s), Denies headache(s) and Denies night sweats Eyes Denies dry eyes, Denies irritation and Denies itchy eyes ENT Reports Normal hearing present and Denies headache(s) Card Denies chest pain, Denies chest pain at rest, Denies chest pain with activity, Denies claudication, Denies leg edema, Denies dyspnea, Denies dyspnea on exertion, Denies orthopnea and Denies paroxysmal nocturnal dyspnea Resp Denies chest congestion, Denies cough, Denies excessive phlegm production, Denies pain on inspiration, Denies pain with cough, Denies dyspnea, Denies dyspnea on exertion, Denies stridor and Denies wheezing Musc Denies myalgias Neuro Reports Normal hearing present and Denies headache(s) Endo Denies excessive sweating Ryan/Lymph Denies lymphadenopathy Aller/Immun Denies itchy eyes, Denies seasonal rhinorrhea and Denies wheezing Physical Exam Const General: cooperative and no acute distress Orientation/consciousness: patient oriented x3 Resp Effort & Inspection: normal respiratory effort, able to speak in complete sentences and no audible wheezes Neuro General: patient oriented x3 Cranial nerves: Yes Normal hearing present Psych Mental Status: mental status grossly normal Speech and movement: Clear speech present Attitude: cooperative Thought process: Normal thought process present Thought content: Normal thought content present Insight: Good insight present (Psych) Judgement: Good judgement present (Psych) Results Reviewed Results Reviewed: Assessment & Plan Assessment & Plan (1) Pulmonary fibrosis: Code(s): J84.10 - Pulmonary fibrosis, unspecified Plan Reviewed PFT which did not reveal any obstructive or restrictive defect. Patient declined bronchodilator as newly . Total lung capacity and diffusion capacity normal. Patient was sent for CT to assess fibrotic changes, but this will be deferred until after delivery. Patient is aware to call office if she develops any respiratory symptoms, at this time denies. All questions were answered and patient is in agreement of plan will follow-up after CT to review results. Telehealth Telehealth Location of provider rendering services: practice address Location of patient: address on file Patient Identification confirmed using: Name, : Yes Telehealth method: voice only Patient verbally consented to treatment: Yes Patient verbally consented to billing insurance company: Yes Patient informed of any privacy concerns related to visit: Yes Coding Level of Care Code Tele Est Pt Level 3 (80789) Diagnoses Pulmonary fibrosis J84.10 Time Spent (min) 10
== END ==
PROVIDERS: PCP Internal Medicine; Visit Provider Nurse Practitioner Family
DX: J84.10 Pulmonary fibrosis, unspecified (principal)
CPT/HCPCS: 99213

== ENCOUNTER → 2023-07-18 13:17 | Outpatient (BNVA) | payer OTHER, SELFPAY | PROVIDERS: PCP Internal Medicine; Visit Provider Nurse Practitioner Family ==

== ENCOUNTER 2024-06-09 12:37 | Outpatient (AMB) | payer OTHER, SELFPAY ==
--- NOTE | 2024-06-09 12:40 | MHC.PC.OV ---
Vital Signs 06/09/24 12:42 Height 5 ft 3 in Weight 120 lb BMI 21.3 BP 110/80 Blood Pressure Location Lt brachial Position Sitting Intake Visit Reasons: PE Intake Note: Patient here for a physical exam, c/o left knee pain, hip/leg pain, lab requests [employer] Vertical Required: No Accompanied by: Self / Same As Patient Allergies latex [LATEX] Allergy (Intermediate, Verified 06/09/24 12:52) HIVES/RASH Medication List - Last Reconciled 06/09/24 by Sussy Cleary MD bupropion HCl SR 150 mg PO DAILY 90 days clonazepam (Klonopin) 1.5 mg PO BEDTIME lamotrigine 200 mg PO DAILY quetiapine 150 mg PO BEDTIME topiramate 75 mg PO DAILY Tobacco use date assessed: 06/09/24 Dental Screening Dental Screen Date: 06/09/24 Did you have a dental visit in the last 12 months?: No Did you have a dental problem in the last 6 months where you did not have access to dental care?: No Was dental information given to patient?: Patient has dentist HPI HPI Comments History of Present Illness Details The patient is a 43-year-old female presenting with bipolar disorder for her physical exam. She has musculoskeletal pain involving both hips and the left knee, as well as dizziness occurring post-delivery. The bilateral hip pain and left knee pain have been persistent, causing limping and discomfort, which did not resolve despite exercise and stretching. The patient delivered twins vaginally on January 25, following a full-term where one child was in breech position. The delivery was performed in the Operating Room with special care due to the breech presentation, and an episiotomy was required. , the patient has experienced dizziness even when consuming meals. The dizziness is particularly concerning given her family history of diabetes. The patient is currently under psychiatric care and is on several medications including bupropion, clonazepam, lamotrigine, quetiapine, and topiramate for anxiety management. The patient engages in regular physical activity and maintained a workout routine during . There is a strong family history of diabetes, thyroid disorders, hypertension, congestive heart failure, and hypercholesterolemia. Additionally, the patient smokes approximately five cigarettes daily but is exploring options to quit due to inadequate relief from nicotine patches. - Regular physical activity was maintained throughout . - Discussion on smoking cessation, including potential hypnosis seminars attended by Arnoldo King, as nicotine patches proved ineffective. - Follow-up on psychiatric medications under psychiatric care. - Mammogram done 2023. - Pap smear up to date. [facility] Medical History (Updated 06/09/24 @ 14:34 by Sussy Cleary MD) Pulmonary fibrosis Bunion, left foot Bilateral hand pain Constipation by delayed colonic transit Sacroiliitis Spondylosis of lumbar spine Left knee pain Chronic pain syndrome Spinal stenosis at L4-L5 level Facet arthritis of lumbar region Disc degeneration, lumbar Candidal stomatitis Chronic constipation Thrush Surgical History History of breast augmentation Spinal cord stimulator status No pertinent past surgical history Family History Father Essential hypertension Pure hypercholesterolemia Mother Congestive heart failure Social History Household Members Other:: daughter Housing: Apartment Alcohol intake: never Patient Tobacco Use Status: Current everyday Tobacco user Tobacco use type: Cigarette Cigarettes Per Day: 5 e-Cigarette/Vaping Use: Currently Using Second Hand Smoke Exposure: No service: No Current occupational status: employed Current occupational exposures/hazards: No Cognitive needs: No Hearing needs: No Vision needs: No Questionnaire PHQ-9 Over the last 2 weeks, how often have you been bothered by any of the following problems? 1. Little interest or pleasure in doing things: not at all 2. Feeling down, depressed, or hopeless: not at all 3. Trouble falling or staying asleep, or sleeping too much: not at all 4. Feeling tired or having little energy: not at all 5. Poor appetite or overeating: not at all 6. Feeling bad about yourself - or that you are a failure or have let yourself or your family down: not at all 7. Trouble concentrating on things, such as reading the newspaper or watching television: not at all 8. Moving or speaking so slowly that other people could have noticed. Or the opposite - being so fidgety or restless that you have been moving around a lot more than usual: not at all 9. Thoughts that you would be better off or of hurting yourself in some way: not at all Total score: 0 Depression Screening Interpretation: Negative Depression Screening Done: Yes 54773 - PHQ-9 Billing: Yes Source: Developed by Drs. Elmer Calles, Janice Nayak, Davon Martin and colleagues, with an educational shreya from [employer]. Thrive Questionnaire Date Thrive assessed: 06/09/24 I am a: Patient What is your living situation today?: I have a steady place to live Within the past 12 months, did the food you bought not last and you didn't have the money to get more?: I choose not to answer this question Within the past 12 months, did you worry whether your food would run out before you got money to buy more?: I choose not to answer this question Do you have trouble paying for medicines?: I choose not to answer this question Do you have trouble getting transportation to medical appointments?: I choose not to answer this question Do you have trouble paying your heating and electricity bill?: I choose not to answer this question Do you have trouble taking care of your child, family member or friend?: I choose not to answer this question Do you have trouble with day-to-day activities such as bathing, preparing meals, shopping, managing finances, etc.?: I choose not to answer this question Are you currently unemployed and looking for a job?: I choose not to answer this question Are you interested in more education?: I choose not to answer this question Please select the resources that you would like help with: None Currently or been in a relationship where the following occur: I choose not to answer THRIVE Score: 0 AUDIT C Alcohol Use Questionnaire (AUDIT-C) 1. How often do you have a drink containing alcohol?: Never Total Score: 0 Score Reviewed/Action Taken: No TIESHA-7 AMB Questionnaire TIESHA-7 Date TIESHA - 7 assessed: 06/09/24 Feeling nervous, anxious, or on edge: 3 = Nearly every day Not being able to stop or control worryin = Several days Worrying too much about different things: 1 = Several days Trouble relaxin = More than half the days Being so restless that it is hard to sit still: 2 = More than half the days Becoming easily annoyed or irritable: 2 = More than half the days Feeling afraid as if something awful might happen: 3 = Nearly every day Total TIESHA-7 score (0-4 normal; 5-9 mild; 10-14 moderate; 15-21 severe): 14 Source: Developed by Drs. Elmer Calles, Janice Nayak, Davon Martin and colleagues, with an educational shreya from [employer]. TIESHA-7 Assessment Billing TIESHA-7 Assessment Tool: TIESHA-7 Assessment 29653 Review of Systems Const All systems reviewed & are unremarkable except as noted in HPI and below Card Denies chest pain at rest, Denies chest pain with activity, Denies edema, Denies irregular heart rhythm, Denies claudication, Denies dyspnea, Denies dyspnea on exertion, Denies orthopnea, Denies paroxysmal nocturnal dyspnea and Denies slow heart rate Resp Denies cough, Denies dyspnea and Denies dyspnea on exertion GI Denies abdominal pain, Denies change in bowel habits, Denies excessive flatus, Denies nausea and Denies vomiting Physical exam (Primary Care) Vital Signs: Last Vital Signs BP 110/80 06/09/24 12:42 BMI result Body Mass Index 21.3 Tobacco/Smoking Status: Tobacco use Status Tobacco use date assessed 06/09/24 06/09/24 12:49 Patient Tobacco Use Status Current everyday Tobacco 06/09/24 12:49 Tobacco use type Cigarette 06/09/24 12:49 e-Cigarette/Vaping Use Currently Using 06/09/24 12:49 Are you ready to quit: No Tobacco cessation counseling provided: Yes Items discussed: Nicotine replacement Relapse Prevention: discussed the importance of a supportive environment, discussed extending NRT, discussed negative mood or depression after quitting, weight gain after smoking is common and discussed dietary, exercise and/or lifestyle changes Number of minutes spent counselin CPT code: 33015 - 4-10 Minutes PHQ-9: PHQ-9 Score PHQ-9: Total score 0 06/09/24 13:10 Depression Screening Interpretation: Negative Thrive Assessment: Date of Thrive Assessment Date Thrive assessed 06/09/24 06/09/24 12:49 Currently or been in a relationship where the following occur: I choose not to answer [facility] Head: Yes normal to inspection, Yes normocephalic and Yes atraumatic Ears: external ears normal Eyes General: appearance normal, both eyes and all related structures Eyelids: Yes eyelids normal Conjunctivae: conjunctivae normal Neck Neck: Yes normal visual inspection and Yes supple Resp Effort & Inspection: normal respiratory effort Auscultation: clear to auscultation bilaterally Cardio Jugular venous distension: no JVD Rate: regular rate Rhythm: regular rhythm Heart sounds: S1 normal heart sound present and S2 normal heart sound present GI Inspection: Yes normal to inspection Palpation (GI): Soft to palpation and nontender Auscultation: normal bowel sounds Skin General skin exam: no rashes or lesions noted Neuro General: no focal motor deficits Extrem General: Yes full ROM Psych Appearance: grossly normal Office Procedures Flu Questionnaire Does the patient have a severe egg allergy?: No Immunizations Fluarix Triv [id number] (PF) 45 mcg (15 mcg x 3)/0.5 mL IM syringe Performing Provider: Sussy Cleary MD [place] [facility] [place] [facility] [place] [facility] Documented (not given) by: ADELFO Yanez on 06/09/24 12:50 Reason Not Given: Received Previously Coding Level of Care Code Est Pt Level 3 (76426) Est Pt Prev Care 40-64y(37299) Diagnoses Physical exam Z00.00 Bipolar affective disorder, remission status unspecified F31.9 Active/Remission status: remission status unspecified Chronic pain of left knee M25.562; G89.29 Chronicity: chronic Right hip pain M25.551 Left hip pain M25.552 Additional Codes TIESHA-7 Assessment Billing - TIESHA-7 Assessment Tool: TIESHA-7 Assessment 28410 ([id number]) PHQ-9 - 07300 - PHQ-9 Billing: Yes ([id number]) Vital Signs *Quality* - CPT code: 71625 - 4-10 Minutes ([id number]) Time Spent (min) 35 Assessment & Plan Assessment & Plan (1) Physical exam: Code(s): Z00.00 - Encounter for general adult medical examination without abnormal findings Category: Medical (2) Bipolar disorder: Code(s): F31.9 - Bipolar disorder, unspecified Category: Medical Qualifiers: Active/Remission status: remission status unspecified Qualified Code(s): F31.9 - Bipolar disorder, unspecified (3) Left knee pain: Code(s): M25.562 - Pain in left knee Category: Medical Qualifiers: Chronicity: chronic Qualified Code(s): M25.562 - Pain in left knee; G89.29 - Other chronic pain (4) Right hip pain: Code(s): M25.551 - Pain in right hip Category: Medical (5) Left hip pain: Code(s): M25.552 - Pain in left hip Category: Medical Plan - X-rays to be performed for both hips and left knee to evaluate musculoskeletal pain. - Referral to orthopedic care for assessment by Dr. Jonas, considering existing history with [facility]. - Comprehensive blood work including glucose, cholesterol, thyroid, kidneys, and liver function tests, with a focus on diabetes screening due to family history. - Continuation of psychiatric medications under current management. Patient was informed and verbally consented to the use of an ambient scribe for clinic note documentation during this visit. I discussed with the patient the necessity of x-rays for her persistent musculoskeletal pain in the hips and left knee, recommending assessment by health promotion specialist Dr. Jonas. We reviewed the significance of obtaining comprehensive blood work including glucose monitoring due to her family history of diabetes, thyroid issues, and other metabolic concerns. I emphasized the importance of smoking cessation and explored options beyond nicotine patches, including hypnosis, which has been effective for some individuals. Further, I confirmed the continuation of her current psychiatric management approach. Orders: Orders Influenza [id number] Immunization Today Z23 - Encounter for immunization XR hip LT min 2V Today M25.552 - Pain in left hip Comprehensive [place]. Panel Fast Today Z00.00 - Encounter for general adult medical examination without abnormal findings XR knee LT 2V Today M25.562 - Pain in left knee XR hip RT min 2V Today M25.551 - Pain in right hip Lipid Panel Today Z00.00 - Encounter for general adult medical examination without abnormal findings Thyroid Stimulating Hormone Today K59.09 - Other constipation Referrals Orthopedics Referral M25.551 - Pain in right hip, M25.552 - Pain in left hip, M25.562 - Pain in left knee Patient Instructions: - Schedule and complete the ordered x-rays for hips and left knee. - Arrange for blood work, fasting as instructed to ensure accurate glucose and cholesterol levels. - Continue with current psychiatric medications and follow up with psychiatry. - Explore smoking cessation seminars, specifically those conducted by Arnoldo King, as an alternative to nicotine patches. - Monitor symptoms and report any changes or concerns promptly.
[2024-06-09 12:42] VITALS: BP 110/80; BMI 21.3
== END 2024-06-09 13:09 | disposition home or self-care (01) ==
PROVIDERS: PCP Internal Medicine; Visit Provider Internal Medicine
DX: Z00.00 Encounter for general adult medical examination without abnormal findings (principal); F31.9 Bipolar disorder, unspecified; M25.562 Pain in left knee; G89.29 Other chronic pain; M25.551 Pain in right hip; M25.552 Pain in left hip

== ENCOUNTER → 2024-06-09 12:37 | Outpatient (BNVA) | payer OTHER, SELFPAY | PROVIDERS: PCP Internal Medicine; Visit Provider Internal Medicine | DX: Z00.00 Encounter for general adult medical examination without abnormal findings (principal); F31.9 Bipolar disorder, unspecified; M25.562 Pain in left knee; G89.29 Other chronic pain; M25.551 Pain in right hip; M25.552 Pain in left hip | CPT/HCPCS: 96127; 99212; 99396 ==

== ENCOUNTER 2024-06-14 08:57 | Outpatient (REF) | payer OTHER, SELFPAY ==
--- NOTE | ~2024-06-14 | XR_ITS ---
CLINICAL HISTORY: M25.552 - Pain in left hip Left hip two views Comparison: 08/23/2020 Findings: No acute fracture or dislocation identified. No acute focal bony abnormality. Electronic device over left ilium. Impression: No acute bony abnormality This document has been electronically signed by: Geraldo Jordan MD on 06/14/2024 20:56:15
--- NOTE | ~2024-06-14 | XR_ITS ---
CLINICAL HISTORY: M25.551 - Pain in right hip Right hip two views Comparison: 08/23/2020 Findings: No acute fracture or dislocation identified. No acute focal bony abnormality. No radiopaque foreign body noted. Impression: No acute bony abnormality This document has been electronically signed by: Geraldo Jordan MD on 06/14/2024 20:56:59
--- NOTE | ~2024-06-14 | XR_ITS ---
CLINICAL HISTORY: M25.562 - Pain in left knee Left knee 2 views Comparison: 08/11/2020 Findings: No acute fracture or dislocation noted. No significant joint effusion identified. No soft tissue foreign body. Impression: No acute bony abnormality This document has been electronically signed by: Geraldo Jordan MD on 06/14/2024 20:52:01
[2024-06-14 10:17] LABS: Alanine Aminotransferase 27 U/L (0-31); Albumin Level 4.5 g/dL (3.5-5.0); Alkaline Phosphatase 55 U/L (39-117); Anion Gap 10 (12-20); Aspartate Amino Transferase 32 U/L (5-31); Bilirubin Total 0.5 mg/dL (0.0-1.0); Blood Urea Nitrogen 11 mg/dL (9-16); Calcium 9.6 mg/dL (8.4-10.2); Carbon Dioxide 26 mmol/L (22-29); Chloride 107 mmol/L (96-108); Cholesterol 188 mg/dL (<200); Estimated Glomerular Filt Rate > 60; Glucose Fasting 91 mg/dL (60-99); HDL Cholesterol 57 mg/dL (>40); LDL Cholesterol Calculated 113 mg/dL (<100); Potassium 3.9 mmol/L (3.3-5.1); Sodium 139 mmol/L (135-145); Total Protein 7.4 g/dL (6.5-8.0); Triglycerides 91 mg/dL (<150)
[2024-06-14 10:34] LABS: Thyroid Stimulating Hormone 0.31 uIU/mL (0.32-4.0)
== END 2024-06-14 08:58 | disposition home or self-care (01) ==
LOC: HO.XRAY 08:57
PROVIDERS: PCP Internal Medicine; Visit Provider Internal Medicine
DX: Z00.00 Encounter for general adult medical examination without abnormal findings (principal); M25.551 Pain in right hip; M25.552 Pain in left hip; M25.562 Pain in left knee; K59.09 Other constipation
CPT/HCPCS: 36415; 73502; 73560; 80053; 80061; 84443

== ENCOUNTER → 2024-06-14 09:17 | Outpatient (BNV) | payer OTHER, SELFPAY | PROVIDERS: PCP Internal Medicine; Visit Provider Radiology Diagnostic Radiology | DX: M25.552 Pain in left hip (principal); M25.551 Pain in right hip; M25.562 Pain in left knee | CPT/HCPCS: 73502; 73560 ==

== ENCOUNTER 2024-08-05 16:16 | Outpatient (REF) | payer OTHER, SELFPAY ==
[2024-08-05 20:30] LABS: Alanine Aminotransferase 25 U/L (0-31); Albumin Level 4.1 g/dL (3.5-5.0); Alkaline Phosphatase 52 U/L (39-117); Aspartate Amino Transferase 26 U/L (5-31); Bilirubin Direct 0.1 mg/dL (0.0-0.5); Bilirubin Total 0.4 mg/dL (0.0-1.0)
[2024-08-05 20:45] LABS: Free T4 (Free Thyroxine) 1.11 ng/dL (0.71-1.85); Thyroid Stimulating Hormone 0.58 uIU/mL (0.32-4.0)
[2024-08-06 08:21] LABS: HBS Num1 > 1000.00 mIU/mL (0-7.99); HBc Num1 0.06 S/CO (0.00-0.79); HBsAGNum1 0.33 S/CO (0.00-0.99); Hepatitis A Antibody IgM 0.17 Index (0-0.79); Hepatitis B Core Antibody Nonreactive (Nonreactive); Hepatitis B Surface Antigen Negative (Negative); ~HepC Num1 0.11 S/CO (0.00-0.79); ~Hepatitis A Antibody IgM Nonreactive (Nonreactive); ~Hepatitis B Surface Antibody REACTIVE (Nonreactive); ~Hepatitis C Antibody Nonreactive (Nonreactive)
[2024-08-11 12:18] LABS: Thyroglobulin Antibodies <1 IU/mL (< or = 1); Thyroid Peroxidase Antibodies 1 IU/mL (<9)
== END 2024-08-05 16:17 | disposition home or self-care (01) ==
LOC: HO.LAB 16:16
PROVIDERS: PCP Internal Medicine; Visit Provider Internal Medicine
DX: R74.01 Elevation of levels of liver transaminase levels (principal); R79.89 Other specified abnormal findings of blood chemistry
CPT/HCPCS: 36415; 80076; 84439; 84443; 86376; 86704; 86706; 86709; 86800; 86803; 87340